=== PATIENT | female | born 1940 | race Caucasian/White ===

== ENCOUNTER 2020-06-06 07:56 | Inpatient (IN) ==
[2020-06-06] MEDS ORDERED: cefOXitin 2,000 MG in Water for inj. (sterile) 20 ML IVP ONE (08:34)
[2020-06-06] MEDS ORDERED: *HR* HYDROmorphone PF 0.5 MG/0.5 ML SYRINGE IVP PRN (08:45)
[2020-06-06] MEDS ORDERED: Ringers Solution, Lactated 1,000 ML IVC SCH (08:45)
[2020-06-06] MEDS ORDERED: *HR* OxyCODONE Immed Rel 5 MG TABLET PO PRN (08:45)
[2020-06-06] MEDS ORDERED: Ondansetron 4 MG/2 ML VIAL IVP ONE (08:45)
[2020-06-06] MEDS ORDERED: Celecoxib 200 MG CAPSULE PO ONE (08:49)
[2020-06-06] MEDS ORDERED: *HR* FentaNYL (PF) 100 MCG/2 ML VIAL ONE (09:07)
[2020-06-06] MEDS ORDERED: *HR* Rocuronium Bromide 50 MG/5 ML VIAL ONE (09:08)
[2020-06-06] MEDS ORDERED: *HR* Propofol 200 MG/20 ML VIAL IVP ONE (09:08)
[2020-06-06] MEDS ORDERED: Lidocaine -MPF 2% 2 ML VIAL ONE (09:08)
[2020-06-06] MEDS ORDERED: Acetaminophen IV 1,000 MG/100 ML INFUS..BTL ONE (12:22)
[2020-06-06] MEDS ORDERED: Dexamethasone 4 MG/ML VIAL ONE (13:24)
[2020-06-06] MEDS ORDERED: Ondansetron 4 MG/2 ML VIAL ONE (13:24)
[2020-06-06] MEDS ORDERED: Naloxone 0.4 MG/ML INJ IVP PRN (16:58)
[2020-06-06] MEDS: Ketorolac 15 MG/ML VIAL IVP SCH (18:06)
[2020-06-07] MEDS: Ketorolac 15 MG/ML VIAL IVP SCH ×3 (00:54→11:35)
[2020-06-07] MEDS ORDERED: Ibuprofen 600 MG TABLET PO PRN (15:19)
[2020-06-08 08:06] VITALS: BP 136/88
== END 2020-06-08 15:37 | disposition home or self-care (01) | DRG 331 ==
LOC: SAMDAY 07:56 → 3ANU 16:15
PROVIDERS: ADMIT Surgery; ATTEND Surgery